=== PATIENT | female | born 1975 | race Caucasian/White ===

== ENCOUNTER → 2023-11-10 19:06 | Outpatient (REF) | payer OTHER, SELFPAY | LOC: WDC 19:06 | PROVIDERS: ATTENDING PHYSICIAN Nurse Practitioner Family | DX: Z12.31 Encounter for screening mammogram for malignant neoplasm of breast (principal) | CPT/HCPCS: 77063; 77067 ==

== ENCOUNTER → 2024-08-31 10:07 | Outpatient (REF) | payer OTHER, SELFPAY | LOC: HWRAD 10:07 | PROVIDERS: ATTENDING PHYSICIAN Nurse Practitioner Family | DX: R22.41 Localized swelling, mass and lump, right lower limb (principal); Z00.00 Encounter for general adult medical examination without abnormal findings | CPT/HCPCS: 72110; 73552; 76604; 76882 ==

== ENCOUNTER → 2024-09-27 18:08 | Outpatient (REF) | payer OTHER, SELFPAY | LOC: MRI 3T 18:08 | PROVIDERS: ATTENDING PHYSICIAN Nurse Practitioner Family | DX: M54.6 Pain in thoracic spine (principal) | CPT/HCPCS: 72157; A9575 ==

== ENCOUNTER → 2024-12-06 18:09 | Outpatient (REF) | payer OTHER, SELFPAY | LOC: WDC 18:09 | PROVIDERS: ATTENDING PHYSICIAN Family Medicine | DX: Z12.31 Encounter for screening mammogram for malignant neoplasm of breast (principal) | CPT/HCPCS: 77063; 77067 ==

== ENCOUNTER 2025-02-02 06:18 | Day surgery (SDC) | payer OTHER, SELFPAY | END 2025-02-02 14:01 | disposition home or self-care (01) | LOC: GI 06:18 | PROVIDERS: ATTENDING PHYSICIAN Internal Medicine Gastroenterology | DX: Z12.11 Encounter for screening for malignant neoplasm of colon (principal); R19.5 Other fecal abnormalities; K64.8 Other hemorrhoids; K57.30 Diverticulosis of large intestine without perforation or abscess without bleeding | CPT/HCPCS: G0121 ==

== ENCOUNTER 2025-04-23 13:21 | Emergency (ER) | payer OTHER, SELFPAY ==
[2025-04-23 13:32] VITALS: BP 141/103
[2025-04-23 13:53] LABS: Hematocrit 42.5 % (37.0-47.0); Hemoglobin 14.3 g/dL (12.0-16.0); Mean Corp Hgb Conc. 33.6 g/dL (33.0-37.0); Mean Corpuscular Volume 91.0 fL (81.0-99.0); Nucleated Red Blood Cells % 0 %; Platelet Count 305 10^3/uL (130-400); Red Cell Dist. Width 12.6 % (11.5-14.5)
[2025-04-23 14:13] LABS: ALT (SGPT) 20 U/L (0-35); AST (SGOT) 23 U/L (14-36); Albumin 5.1 g/dl (3.5-5.0); Alkaline Phosphatase 74 U/L (38-126); Blood Urea Nitrogen 12 mg/dl (7-17); Calcium 10.0 mg/dl (8.4-10.2); Carbon Dioxide 30 mmol/L (22-30); Chloride 99 mmol/L (98-107); Glucose 93 mg/dl (70-99); Potassium 3.9 mmol/L (3.5-5.1); Sodium 135 mmol/L (135-145); Total Protein 8.2 g/dl (6.3-8.2); eGFR > 60.00
--- NOTE | 2025-04-23 14:45 | ED.GENMED ---
History of Present Illness
General
Chief Complaint: Ear Problem
Source: patient
Exam Limitations: none
Time Seen by Provider: 04/23/25 14:37
History of Present Illness
History of Present Illness:
49-year-old female has ongoing tinnitus to the right ear. Much worse the last 24 hours. Unusual headache that started last night. In addition a throbbing and ear pain to the right ear. Seen in urgent care and was sent for CAT scans. Patient
denies neurologic symptoms or other complaints. Last menstrual period was a year ago. She denies .
Past History
Past History
ED Past Medical History: HTN and Hypercholesterolemia
ED Past Surgical History: and Gynecological
Phy Exam
Physical Exam
Physical Exam:
GENERAL: Alert and oriented in no apparent distress
EYE: Orbits normal.
NECK: Supple, no carotid bruit. No neck swelling
ENT: Pharynx without erythema. TMs clear bilaterally. Good reflex
CARDIAC: Regular rate and rhythm without any obvious murmurs.
LUNGS: Clear breath sounds,normal
ABDOMEN: Soft, without focal tenderness or distention
NEUROLOGICAL: Alert and oriented , grossly non-focal. Speech normal. Cranial nerves II through XII intact. Nonfocal
SKIN: Warm and dry, no rash or lesion, no discoloration, skin intact.
MUSCULOSKELETAL: No edema,no deformity.Good color
PSYCH: Normal and appropriate interaction.
Course
Orders/Labs/Results
Orders:
Orders
04/23/25 13:41
Complete Blood Count/With Diff Urgent
Comprehensive Metabolic Panel Urgent
04/23/25 14:44
CT Head & Neck Angio W/wo IV Urgent
Comment:
Reason For Exam: Headache. Tinnitus/throbbing/ear pain
IV Insert/Care/Rem.- Treatment PRN
0.9% Sodium Chloride 500 ml [Nss] 500 ml IV BOLUS
Abnormal Lab Results
04/23/25
13:41
Albumin 5.1 H g/dl
(3.5-5.0)
04/23/25 13:41
04/23/25 13:41
Vital Signs
Initial and Last Documented VS:
Initial Vital Signs
Temp Pulse Resp BP Pulse Ox
98.8 F 94 18 141/103 100
04/23/25 13:32 04/23/25 13:32 04/23/25 13:32 04/23/25 13:32 04/23/25 13:32
Last Documented Vital Signs
Temp Pulse Resp BP Pulse Ox
98.8 F 88 18 137/94 98
04/23/25 13:32 04/23/25 17:07 04/23/25 17:07 04/23/25 17:07 04/23/25 17:07
MDM/Problems Addressed
Differential Diagnosis Includes:
Patient is neurologic exam is normal. She is nontoxic in no distress. However with complex of tinnitus, unusual headache, throbbing in the ear feel vascular emergency needs to be ruled out.
*Radiology
Radiology exam reviewed: radiology read reviewed (No acute findings. Dominant left vertebral artery)
*Pulse Oximetry
SaO2: 100
Oxygen Mode of Delivery: Room air
Patient hypoxic: no
*Critical Care Note
Total Time (30-74mins, 75-104mins- exclusive of procedures): Not Applicable
Data Reviewed
Review of Other/Old Records Reveals: Labs and Records
Update Note
Update Note:
No serious explanation for patient's tinnitus. Or headache. Clinically stable and nontoxic. In no distress. Discharged to follow-up
ED Attending Note
-
Portions of this chart may have been created with voice recognition software.� Occasional wrong word or��sound alike� substitutions may have occurred due to the inherent limitations of voice recognition software.
Discharge Plan
Departure
Patient Disposition: Home (Routine Discharge)
Date of Disposition: 04/23/25
Time of Disposition: 16:55
Patient with high blood pressure during this ER visit?: Yes
Discharge Problem:
Tinnitus/headache
Instructions: Tinnitus (ringing in the ears), Headache in adults - ED (DC), BLOOD PRESSURE
Prescriptions:
No Action
Vitamins
Referrals:
Luana Mera MD [Family Provider, Family Practice] - Follow up in 2-3 days
Lexie Gray MD [Active, Otology] - Next open appointment
Interventions
Interventions:
*Nursing Disposition Last Done: 04/23/25 17:11
Discharge Date and Time
Discharge Date/Time: 04/23/25 17:12
Print Language: IRANIAN
[2025-04-23] MEDS: NSS 500 IV (14:55)
[2025-04-23 17:07] VITALS: BP 137/94
== END 2025-04-23 17:12 | disposition home or self-care (01) ==
LOC: EMR 13:21
PROVIDERS: Emergency Medicine; EMERGENCY PHYSICIAN Emergency Medicine; FAMILY PHYSICIAN Family Medicine
DX: H93.11 Tinnitus, right ear (principal); R51.9 Headache, unspecified; I10 Essential (primary) hypertension; E78.00 Pure hypercholesterolemia, unspecified
CPT/HCPCS: 99284; 96360; 70496; 70498; 80053; 85025; Q9967